=== PATIENT | female | born 1930 | race Caucasian/White ===

== ENCOUNTER 2018-04-18 21:16 | Observation (INO) | payer OTHER, MEDICARE ==
--- NOTE | 2018-04-18 21:20 | PDOC ---
History of Present Illness - General History Source: Patient, EMS Exam Limitations: No Limitations - History of Present Illness Initial Comments: 04/18/18 22:29 The patient is a 88 year old female with a significant PMH of dementia and seizures who presents to the emergency department via EMS from [facility] for evaluation of left sided facial droop. The patient was seen in the ED 1 week ago for a fall. As per EMS, the patient was sent to the ED today for a noticed left sided facial droop since about 5 pm. The patient denies any other symptoms. She denies any fever, chills, nausea, vomit, diarrhea, constipation or urinary symptoms. She denies any chest pain, shortness of breath, headache and dizziness. The patient denies any other complaints. PCP: Dr. Padilla <Kriss Bose - Last Filed: 04/18/18 22:29> - General History Source: EMS <Maynor Go - Last Filed: 04/22/18 19:23> - General Stated Complaint: FACIAL DROOPING Time Seen by Provider: 04/18/18 21:20 Past History <Kriss Bose - Last Filed: 04/18/18 22:29> - Past Medical History Cardiac Disorders: Yes (ashd, [place] in past) COPD: Yes Dementia: Yes Diabetes: Yes GI Disorders: Yes (ulcer) Psychiatric Problems: Yes (depression, panic disorder) - Suicide/Smoking/Psychosocial Hx Smoking History: Unknown if ever smoked <Maynor Go - Last Filed: 04/22/18 19:23> - Past Medical History Allergies/Adverse Reactions: Allergies Allergy/AdvReac Type Severity Reaction Status Date / Time shellfish derived Allergy Verified 04/18/18 21:51 Home Medications: Ambulatory Orders Acetaminophen [Tylenol] 650 mg PO QID PRN 04/10/18 Aspirin 81 mg PO DAILY 04/10/18 Clonazepam 0.5 mg PO BID 04/10/18 Docusate Sodium [Colace] 100 mg PO TID 04/10/18 Escitalopram Oxalate [Lexapro -] 5 mg PO DAILY 04/10/18 Metoprolol Tartrate [Lopressor -] 50 mg PO BID 04/10/18 Mirtazapine [Remeron -] 30 mg PO HS 04/10/18 Ranitidine [Zantac -] 150 mg PO HS 04/10/18 metFORMIN HCL [Metformin HCl] 850 mg PO BID 04/10/18 Dextran 70/Hypromellose [Artificial Tears Eye Drops] 2 drop OP TID #7 drops 07/28 predniSONE [Deltasone -] 40 mg PO DAILY #4 tablet 04/20/18 Review of Systems - Review of Systems Able to Perform ROS?: Yes Comments:: 04/18/18 22:30 CONSTITUTIONAL: (+)left sided facial droop Absent: fever, chills, diaphoresis, generalized weakness, malaise, loss of appetite HEENT: Absent: rhinorrhea, nasal congestion, throat pain, throat swelling, difficulty swallowing, mouth swelling, ear pain, eye pain, visual Changes CARDIOVASCULAR: Absent: chest pain, syncope, palpitations, irregular heart rate, lightheadedness , peripheral edema RESPIRATORY: Absent: cough, shortness of breath, dyspnea with exertion, orthopnea, wheezing, stridor, hemoptysis GASTROINTESTINAL: Absent: abdominal pain, abdominal distension, nausea, vomiting, diarrhea, constipation, melena, hematochezia GENITOURINARY: Absent: dysuria, frequency, urgency, hesitancy, hematuria, flank pain, genital pain MUSCULOSKELETAL: Absent: myalgia, arthralgia, joint swelling SKIN: Absent: rash, itching, pallor HEMATOLOGIC/IMMUNOLOGIC: Absent: easy bleeding, easy bruising, lymphadenopathy, frequent infections ENDOCRINE: Absent: unexplained weight gain, unexplained weight loss, heat intolerance, cold intolerance NEUROLOGIC: Absent: headache, focal weakness or paresthesias, dizziness, unsteady gait, seizure, mental status changes, bladder or bowel incontinence PSYCHIATRIC: Absent: anxiety, depression, suicidal or homicidal ideation, hallucinations. <Kriss Bose - Last Filed: 04/18/18 22:29> *Physical Exam - Vital Signs Last Vital Signs Temp Pulse Resp BP Pulse Ox 97.6 F 63 20 164/65 97 04/18/18 21:20 04/18/18 21:20 04/18/18 21:20 04/18/18 21:20 04/18/18 21:20 - Physical Exam Comments: 04/18/18 22:30 GENERAL: Well developed, well nourished. Awake and alert. No acute distress. HEENT:(+)resolving edema and erythema of face over infraction orbital of left eye with left facial droop. Normocephalic, atraumatic. PERRLA, EOMI. No conjunctival pallor. Sclera are non- icteric. Moist mucous membranes. Oropharynx is clear. NECK: Supple. Full ROM. No JVD. Carotid pulses 2+ and symmetric, without bruits. No thyromegaly. No lymphadenopathy. CARDIOVASCULAR: Regular rate and rhythm. No murmurs, rubs, or gallops. Distal pulses are 2+ and symmetric. PULMONARY: No evidence of respiratory distress. Lungs clear to auscultation bilaterally. No wheezing, rales or rhonchi. ABDOMINAL: Soft. Non-tender. Non-distended. No rebound or guarding. No organomegaly. Normoactive bowel sounds. MUSCULOSKELETAL Normal range of motion at all joints. No bony deformities or tenderness. No CVA tenderness. EXTREMITIES: No cyanosis. No clubbing. No edema. No calf tenderness. SKIN: Warm and dry. Normal capillary refill. No rashes. No jaundice. NEUROLOGICAL: Alert, awake, appropriate. Cranial nerves 2-12 intact. No deficits to light touch and temperature in face, upper extremities and lower extremities. No motor deficits in the in face, upper extremities and lower extremities. Normoreflexic in the upper and lower extremities. Normal speech. Toes are down- going bilaterally. PSYCHIATRIC: Cooperative. Good eye contact. Appropriate mood and affect. <Kriss Bose - Last Filed: 04/18/18 22:29> ED Treatment Course - LABORATORY CBC & Chemistry Diagram: 04/19/18 09:50 04/19/18 09:50 <Maynor Go - Last Filed: 04/22/18 19:23> Medical Decision Making - Medical Decision Making 04/22/18 19:23 Dr. Go: The scribe's documentation has been prepared under my direction and personally reviewed by me in its entirery. I confirm that the note above accurately reflects all work, treatment, procedures, and medical decision making performed by me. <Maynor Go - Last Filed: 04/22/18 19:23> *DC/Admit/Observation/Transfer - Attestations Scribe Attestion: 04/18/18 22:30 Documentation prepared by Kriss Bose, acting as medical insurance verifier for Maynor Go DO. <Kriss Bose - Last Filed: 04/18/18 22:29> <Maynor Go - Last Filed: 04/22/18 19:23> Diagnosis at time of Disposition: Facial droop - Discharge Dispostion Disposition: [facility] Condition at time of disposition: Stable
[2018-04-18 22:44] LABS: BASO % 0.3 % (0-2.0); EOS % 5.8 % (0-4.5); HEMATOCRIT 36.5 % (32.4-45.2); HEMOGLOBIN 12.5 GM/dL (10.7-15.3); LYMPH % 45.1 % (8-40); MCH 30.7 pg (25.7-33.7); MCHC 34.3 g/dl (32.0-36.0); MEAN CELL VOLUME 89.5 fl (80-96); MEAN PLT VOLUME 6.8 fl (7.5-11.1); MONO % 8.2 % (3.8-10.2); NEUT % 40.6 % (42.8-82.8); PLATELET COUNT 283 K/MM3 (134-434); RBC 4.07 M/mm3 (3.60-5.2); WHITE BLOOD COUNT 7.1 K/mm3 (4.0-10.0)
[2018-04-18 23:00] LABS: INR 0.94 (0.83-1.09); PROTHROMBIN TIME (PATIENT) 10.6 SEC (9.7-13.0)
[2018-04-18] MEDS ORDERED: ACETAMINOPHEN 1000 MG/100 ML VIAL (NON FORMULARY) IVPB ONE (23:03)
--- NOTE | 2018-04-18 23:12 | PDOC ---
History of Present Illness <Maynor Go - Last Filed: 04/19/18 01:46> - General History Source: Patient, EMS, Family Exam Limitations: Dementia - History of Present Illness Initial Comments: 04/18/18 23:29 Ms. 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 Her daughter visited the facility and noticed the patient had a left lower facial drooping that was noticed when she arrived to the facility at 5pm. In addition, she stated she noticed left eye drooping as well. She was recently seen here 8 days ago s/p mechanical fall that was negative for intracranial bleed. Per the son of the patient, he "may have noticed" the facial drooping yesterday. She is able to ambulate well and denies FND. Denies the following: fever, weakness, chest pain, SOB, abdominal pain, dysuria, hematuria, diarrhea, nausea, and vomiting. Endorses having frontal headaches over the past week that have been progressively worse. Pmhx: pre-diabetes, HTN, dementia, and IA Shx: None Medications: unknown to patient and daughter. states she takes anti-coagulants. Admits to aspirin 81 mg daily. Allergies: NKDA Social: Denies smoking, alcohol use, and drug use. 04/18/18 23:35 <Jonas Robledo - Last Filed: 04/19/18 06:52> - General Chief Complaint: Facial Droop Stated Complaint: FACIAL DROOPING Time Seen by Provider: 04/18/18 21:20 NIH Stroke Scale - Last Known Well Date/Time & Onset Date Last Known Well: 04/18/18 Time Last Known Well: 17:00 - Initial Evaluation Level of consciousness: Alert Ask patient the month and their age: Answers both correctly Ask patient to open & close eyes; make fist and let go: Obeys both correctly Best gaze (horizontal eye movement): Normal Visual field testing: No visual field loss Facial paresis (Show teeth/raise eyebrows/close eyes tight): Complete paralysis of one or both sides (Upper and lower face) Motor Function: Left Arm: Normal Motor Function: Right Arm: Normal (extends arm 90 (or 45) degrees for 10 seconds without drift Motor Function: Left Leg: Drift Motor Function: Right Leg: Normal (extends leg 30 degrees for 5 seconds without drift) Limb Ataxia: No ataxia Sensory(Use pinprick test arms,legs,trunk,face/side to side): Normal Best language (Describe picture, name items, read sentences): No Aphasia Dysarthria (read several words): Normal articulation Extinction and Inattention: No abnormality - Total Score NIH Stroke Scale Score: 4 <Jonas Robledo - Last Filed: 04/19/18 06:52> tPA Exclusion checklist 3-4.5h - Time Elapsed Date last known well: 04/18/18 Time last known well: 17:00 Elaspsed time: Day(s) and 13 Hour(s) and 51 Minutes - Thrombolytic Therapy Candidate Is patient eligible for thrombolytic therapy: No - Exclusion Criteria 3-4.5 hr SBP greater than 185 or DBP greater than 110mmHg despite tx: No Recent IC/spinal surgery,head trauma or stroke<3mos.: Yes Hx IC hemorrhage, IC neoplasm, AV malformation or aneurysm: No Active internal bleeding: No Blding diathesis(low plt ct, inc PTT,INR>1.7 or use of NOAC): No Symptoms suggest subarachnoid hemorrhage: No CT demonstrates multilobar infarct(>1/3 cerebral hemiphere): No Arterial puncture at noncompressible site in previous 7 days: No Blood glucose concentration less than 50mg/dL (2.7mmol/L): No - Relative Exclusion Criteria 3-4.5 hr Life expectancy <1 yr or severe co-morbid illness: No : No Patient/family refused: No Rapid improvement: No Stroke severity too mild: Yes Recent acute IA (w/in previous 3 months): No Seizure at onset with postictal residual neuro impairments: No Major surgery or serious trauma w/in previous 14 days: No Recent GI or hemorrhage (w/in previous 21 days): No - Add'l Relative Exclusion 3-4.5 hr Age > 80: Yes Taking an oral anticoagulant regardless of INR: Yes NIHSS >25: No - Ineligibility reason(s) Reasons No tPA given: Outside of window - delayed arrival (She came in from [facility]. EMS did not arrive until approximately 9:30 pm. Symptoms were too mild. Recent head trauma last week and is on anti coagulants. ) <Jonas Robledo - Last Filed: 04/19/18 06:52> Past History <Maynor Go - Last Filed: 04/19/18 01:46> - Past Medical History Cardiac Disorders: Yes (ashd, [place] in past) COPD: Yes Dementia: Yes Diabetes: Yes GI Disorders: Yes (ulcer) Psychiatric Problems: Yes (depression, panic disorder) - Suicide/Smoking/Psychosocial Hx Smoking History: Unknown if ever smoked Have you smoked in the past 12 months: No Information on smoking cessation initiated: No Hx Alcohol Use: No Drug/Substance Use Hx: No <Jonas Robledo - Last Filed: 04/19/18 06:52> - Past Medical History Allergies/Adverse Reactions: Allergies Allergy/AdvReac Type Severity Reaction Status Date / Time shellfish derived Allergy Verified 04/18/18 21:51 Home Medications: Ambulatory Orders Acetaminophen [Tylenol] 650 mg PO QID PRN 04/10/18 Aspirin 81 mg PO DAILY 04/10/18 Clonazepam 0.5 mg PO BID 04/10/18 Docusate Sodium [Colace] 100 mg PO TID 04/10/18 Escitalopram Oxalate [Lexapro -] 5 mg PO DAILY 04/10/18 Furosemide [Lasix -] 20 mg PO DAILY 04/10/18 Metoprolol Tartrate [Lopressor -] 50 mg PO BID 04/10/18 Mirtazapine [Remeron -] 30 mg PO HS 04/10/18 Ranitidine [Zantac -] 150 mg PO HS 04/10/18 metFORMIN HCL [Metformin HCl] 850 mg PO BID 04/10/18 Review of Systems - Review of Systems Able to Perform ROS?: Yes (limited due to dementia) Constitutional: No: Chills, Diaphoresis, Fever HEENTM: No: Recent change in vision Respiratory: No: Cough, Shortness of Breath Cardiac (ROS): No: Chest Pain ABD/GI: No: Constipated, Diarrhea, Nausea, Rectal Bleeding, Vomiting, Tarry Stools : No: Burning, Dysuria, Hematuria Musculoskeletal: No: Back Pain Integumentary: No: Rash Neurological: Yes: Headache Psychiatric: No: Stressors Endocrine: No: Unexplained Weight Loss Hematologic/Lymphatic: No: Anemia <VenkatJonas - Last Filed: 04/19/18 06:52> *Physical Exam - Vital Signs Last Vital Signs Temp Pulse Resp BP Pulse Ox 97.6 F 63 20 164/65 97 04/18/18 21:20 04/18/18 21:20 04/18/18 21:20 04/18/18 21:20 04/18/18 21:20 <DorisMaria Dolores guerreroan - Last Filed: 04/19/18 01:46> - Vital Signs Last Vital Signs Temp Pulse Resp BP Pulse Ox 97.6 F 63 20 164/65 97 04/18/18 21:20 04/18/18 21:20 04/18/18 21:20 04/18/18 21:20 04/18/18 21:20 - Physical Exam General Appearance: Yes: Nourished, Appropriately Dressed HEENT: positive: EOMI, [place], Normal Voice, Other (ecchymosis from previous fall on left maxilla. two small hematomas s/p mechanical fall 8 days ago on right frontal anterior forehead and right anterior head). negative: Symmetrical ( facial droop left side lower lips. inability to lift left eyebrows. ) Neck: negative: Lymphadenopathy (R), Lymphadenopathy (L) Respiratory/Chest: positive: Lungs Clear, Normal Breath Sounds Cardiovascular: positive: Regular Rhythm, Regular Rate, S1, S2, Systolic Murmur (grade 1) Vascular Pulses: Dorsalis-Pedis (R): 3+, Doralis-Pedis (L): 3+ Gastrointestinal/Abdominal: positive: Normal Bowel Sounds. negative: Tender Lymphatic: negative: Adenopathy Musculoskeletal: positive: Normal Inspection, CVA Tenderness Extremity: positive: Normal Capillary Refill, Normal Inspection Integumentary: positive: Normal Color, Dry, Warm Neurologic: positive: employment attorney II-XII NML intact, Fully Oriented, Alert, Normal Mood/ Affect, Normal Response, Motor Strength 5/5, Facial Droop (left side), Sensory Deficit (negative deficits), Finger to Nose (negative deficits). negative: EOM Palsy, Numbness <Jonas Robledo - Last Filed: 04/19/18 06:52> Heart Score/ECG Review - ECG Intrepretation Comment:: 04/18/18 23:58 normal sinus rhythm with a hx of possible inferior posterior infarct. no active ST depressions/elevations. No irregular rhythm. vent rate 73, NM 192, and QRS is 94 QTc is 469. <Jonas Robledo - Last Filed: 04/19/18 06:52> ED Treatment Course - LABORATORY CBC & Chemistry Diagram: 04/18/18 22:33 04/19/18 00:10 - ADDITIONAL ORDERS Additional order review: Laboratory Results 04/19/18 04/18/18 04/18/18 00:10 23:00 22:33 PT with INR INR Sodium 142 Potassium 4.1 Chloride 104 Carbon Dioxide 29 Anion Gap 9 BUN 24 H Creatinine 0.6 Creat Clearance w eGFR > 60 Random Glucose 89 Calcium 9.2 Total Bilirubin 0.3 AST 27 ALT 24 Alkaline Phosphatase 142 H Creatine Kinase Troponin I Total Protein 7.2 Albumin 3.6 Urine Color Ltyellow Urine Appearance Clear Urine pH 6.0 Ur Specific Nye 1.010 Urine Protein Negative Urine Glucose (UA) Negative Urine Ketones Negative Urine Blood Negative Urine Nitrite Negative Urine Bilirubin Negative Urine Urobilinogen Negative Ur Leukocyte Esterase 3+ H Urine WBC (Auto) 19 Urine RBC (Auto) <1 Ur Epithelial Cells Rare Anti-A Titer Cancelled Blood Type Cancelled Antibody Screen Cancelled 04/18/18 04/18/18 22:33 22:33 PT with INR 10.60 INR 0.94 Sodium Cancelled Potassium Cancelled Chloride Cancelled Carbon Dioxide Cancelled Anion Gap Cancelled BUN Cancelled Creatinine Cancelled Creat Clearance w eGFR Cancelled Random Glucose Cancelled Calcium Cancelled Total Bilirubin Cancelled AST Cancelled ALT Cancelled Alkaline Phosphatase Cancelled Creatine Kinase Cancelled Troponin I Cancelled Total Protein Cancelled Albumin Cancelled Urine Color Urine Appearance Urine pH Ur Specific Nye Urine Protein Urine Glucose (UA) Urine Ketones Urine Blood Urine Nitrite Urine Bilirubin Urine Urobilinogen Ur Leukocyte Esterase Urine WBC (Auto) Urine RBC (Auto) Ur Epithelial Cells Anti-A Titer Blood Type Antibody Screen 04/18/18 22:33 RBC 4.07 MCV 89.5 MCHC 34.3 RDW 14.0 MPV 6.8 L Neutrophils % 40.6 L Lymphocytes % 45.1 H Monocytes % 8.2 Eosinophils % 5.8 H Basophils % 0.3 - RADIOLOGY Radiology Studies Ordered: Category Date Time Status HEAD CT WITHOUT CONTRAST [CT] Stat CT Scan 04/18/18 21:21 Completed - Medications Given in the ED: ED Medications Discontinued Medications Generic Name Dose Route Start Last Admin Trade Name Freq PRN Reason Stop Dose Admin Acetaminophen 1,000 mg 04/18/18 23:03 04/18/18 23:27 Ofirmev Injection - IVPB 04/18/18 23:04 1,000 mg ONCE ONE Administration Acetaminophen 975 mg 04/19/18 00:23 04/19/18 00:52 Tylenol - PO 04/19/18 00:24 975 mg ONCE ONE Administration <Maynor Go - Last Filed: 04/19/18 01:46> - LABORATORY CBC & Chemistry Diagram: 04/18/18 22:33 04/19/18 00:10 - ADDITIONAL ORDERS Additional order review: Laboratory Results 04/18/18 04/18/18 22:33 22:33 Sodium Cancelled Potassium Cancelled Chloride Cancelled Carbon Dioxide Cancelled Anion Gap Cancelled BUN Cancelled Creatinine Cancelled Creat Clearance w eGFR Cancelled Random Glucose Cancelled Calcium Cancelled Total Bilirubin Cancelled AST Cancelled ALT Cancelled Alkaline Phosphatase Cancelled Creatine Kinase Cancelled Troponin I Cancelled Total Protein Cancelled Albumin Cancelled Anti-A Titer Cancelled Blood Type Cancelled Antibody Screen Cancelled 04/18/18 22:33 RBC 4.07 MCV 89.5 MCHC 34.3 RDW 14.0 MPV 6.8 L Neutrophils % 40.6 L Lymphocytes % 45.1 H Monocytes % 8.2 Eosinophils % 5.8 H Basophils % 0.3 - RADIOLOGY Radiology Studies Ordered: Category Date Time Status CHEST X-RAY PORTABLE* [RAD] Stat Radiology 04/18/18 22:17 Ordered <Jonas Robledo - Last Filed: 04/19/18 06:52> Medical Decision Making - Medical Decision Making 04/18/18 23:59 Ms. Pimentel is a 88 yo F with a hx of IA, pre-diabetic, HTN, and recent fall presenting with facial drooping. based on PE and hx, possible CVA vs bells palsy. Initial vitals: Initial Vital Signs Temp Pulse Resp BP Pulse Ox 97.6 F 63 20 164/65 97 04/18/18 21:20 04/18/18 21:20 04/18/18 21:20 04/18/18 21:20 04/18/18 21:20 Work up: Laboratory Results - last 24 hr 04/18/18 04/18/18 04/18/18 22:33 22:33 22:33 WBC 7.1 RBC 4.07 Hgb 12.5 Hct 36.5 MCV 89.5 MCH 30.7 MCHC 34.3 RDW 14.0 Plt Count 283 MPV 6.8 L Absolute Neuts (auto) 2.9 Neutrophils % 40.6 L Lymphocytes % 45.1 H Monocytes % 8.2 Eosinophils % 5.8 H Basophils % 0.3 Nucleated RBC % 0 PT with INR 10.60 INR 0.94 Sodium Cancelled Potassium Cancelled Chloride Cancelled Carbon Dioxide Cancelled Anion Gap Cancelled BUN Cancelled Creatinine Cancelled Creat Clearance w eGFR Cancelled Random Glucose Cancelled Calcium Cancelled Total Bilirubin Cancelled AST Cancelled ALT Cancelled Alkaline Phosphatase Cancelled Creatine Kinase Cancelled Troponin I Cancelled Total Protein Cancelled Albumin Cancelled Urine Color Urine Appearance Urine pH Ur Specific Nye Urine Protein Urine Glucose (UA) Urine Ketones Urine Blood Urine Nitrite Urine Bilirubin Urine Urobilinogen Ur Leukocyte Esterase Urine WBC (Auto) Urine RBC (Auto) Ur Epithelial Cells Anti-A Titer Blood Type Antibody Screen 04/18/18 04/18/18 22:33 23:00 WBC RBC Hgb Hct MCV MCH MCHC RDW Plt Count MPV Absolute Neuts (auto) Neutrophils % Lymphocytes % Monocytes % Eosinophils % Basophils % Nucleated RBC % PT with INR INR Sodium Potassium Chloride Carbon Dioxide Anion Gap BUN Creatinine Creat Clearance w eGFR Random Glucose Calcium Total Bilirubin AST ALT Alkaline Phosphatase Creatine Kinase Troponin I Total Protein Albumin Urine Color Ltyellow Urine Appearance Clear Urine pH 6.0 Ur Specific Nye 1.010 Urine Protein Negative Urine Glucose (UA) Negative Urine Ketones Negative Urine Blood Negative Urine Nitrite Negative Urine Bilirubin Negative Urine Urobilinogen Negative Ur Leukocyte Esterase 3+ H Urine WBC (Auto) 19 Urine RBC (Auto) <1 Ur Epithelial Cells Rare Anti-A Titer Cancelled Blood Type Cancelled Antibody Screen Cancelled Lab reported that CMP/trops/TS hemolyzed. Continued hemolyzation occurred. Redraw occurring at 12:01 am 04/19/2018. Care transferred to Dr. East 04/19/18 00:01 04/19/18 06:51 <Jonas Robledo - Last Filed: 04/19/18 06:52> *DC/Admit/Observation/Transfer - Discharge Dispostion Decision to Admit order: Yes Decision to Admit order Date/Time: Decision to Admit Order Category Date Time Status Decision to Admit to Hospital Routine Admission 08/10/18 01:45 Ordered <Maynor Go - Last Filed: 04/19/18 01:46> <Jonas Robledo - Last Filed: 04/19/18 06:52> Diagnosis at time of Disposition: Facial droop - Discharge Dispostion Condition at time of disposition: Stable
[2018-04-18] MEDS ORDERED: ACETAMINOPHEN INJECTION 100 ML IVPB ONE (23:19)
[2018-04-18 23:20] LABS: URINE APPEARANCE CLEAR; URINE BILIRUBIN NEGATIVE (<2.0 mg/dL); URINE COLOR LTYELLOW; URINE GLUCOSE (UA) NEGATIVE (NEGATIVE); URINE KETONE NEGATIVE (NEGATIVE); URINE NITRITE NEGATIVE (NEGATIVE); URINE PROTEIN NEGATIVE (NEGATIVE); URINE UROBILINOGEN NEGATIVE mg/dL (0.2-1.0)
[2018-04-18 23:33] LABS: URINE LEUK ESTERASE 3+ (NEGATIVE)
[2018-04-18 23:43] LABS: EPI CELLS RARE /HPF (FEW)
[2018-04-19] MEDS ORDERED: ACETAMINOPHEN 325 MG TABLET (FP) PO ONE (00:23)
[2018-04-19] MEDS ORDERED: ACETAMINOPHEN 325 MG TABLET (FP) ONE (00:32)
[2018-04-19 01:08] LABS: ALBUMIN 3.6 g/dl (3.4-5.0); ANION GAP 9 (8-16); BILIRUBIN,TOTAL 0.3 mg/dL (0.2-1.0); BLOOD UREA NITROGEN 24 mg/dL (7-18); CALCIUM 9.2 mg/dL (8.5-10.1); CHLORIDE 104 mmol/L (98-107); CO2 29 mmol/L (21-32); CREATININE 0.6 mg/dL (0.55-1.02); GLUCOSE,RANDOM 89 mg/dL (74-106); SGPT/ALT 24 U/L (12-78); SODIUM 142 mmol/L (136-145)
[2018-04-19 01:09] LABS: ALK PHOS 142 U/L (45-117); TOT PROT 7.2 g/dl (6.4-8.2)
--- NOTE | 2018-04-19 01:10 | HP ---
CHIEF COMPLAINT: left facial droop PCP: HISTORY OF PRESENT ILLNESS: Patient is an 88 year old female with past medical history of Dementia, VT (s/p CABG in 2017), pre-diabetes, and Hypertension, was brought in because of left facial drooping. Her daughter reported patient had left lower facial drooping and left eye drooping when she was visiting patient at the facility a few hours ago. Her son noted he may have noticed facial drooping yesterday. Patient is a poor historian. When asked if she knows why she's here, she reported it was because she fell (which happened 1 week ago) and she never noted the facial drooping. Otherwise, patient denies headache, dizziness, chest pain, SOB, palpitations, numbness or tingling. ER course was notable for: (1)NIH stroke scale: 4 (2)Head CT: no evidence of acute intracranial pathology Recent Travel:denies recent travel PAST MEDICAL HISTORY: Dementia VT pre-diabetic HTN PAST SURGICAL HISTORY: s/p CABG (2017) Social History: Smoking:nonsmoker Alcohol:no EtOH use Drugs: denies illicit drug use Family History: Allergies shellfish derived Allergy (Verified 04/18/18 21:51) HOME MEDICATIONS: Home Medications Medication Instructions Recorded Acetaminophen [Tylenol] 650 mg PO QID PRN 04/10/18 Aspirin 81 mg PO DAILY 04/10/18 Clonazepam 0.5 mg PO BID 04/10/18 Docusate Sodium [Colace] 100 mg PO TID 04/10/18 Escitalopram Oxalate [Lexapro -] 5 mg PO DAILY 04/10/18 Furosemide [Lasix -] 20 mg PO DAILY 04/10/18 Metoprolol Tartrate [Lopressor -] 50 mg PO BID 04/10/18 Mirtazapine [Remeron -] 30 mg PO HS 04/10/18 Ranitidine [Zantac -] 150 mg PO HS 04/10/18 metFORMIN HCL [Metformin HCl] 850 mg PO BID 04/10/18 REVIEW OF SYSTEMS CONSTITUTIONAL: Absent: fever, chills, diaphoresis, generalized weakness, malaise, loss of appetite, weight change HEENT: Absent: rhinorrhea, nasal congestion, throat pain, throat swelling, difficulty swallowing, mouth swelling, ear pain, eye pain, visual changes CARDIOVASCULAR: Absent: chest pain, syncope, palpitations, irregular heart rate, lightheadedness , peripheral edema RESPIRATORY: Absent: cough, shortness of breath, dyspnea with exertion, orthopnea, wheezing, stridor, hemoptysis GASTROINTESTINAL: Absent: abdominal pain, abdominal distension, nausea, vomiting, diarrhea, constipation, melena, hematochezia GENITOURINARY: Absent: dysuria, frequency, urgency, hesitancy, hematuria, flank pain, genital pain MUSCULOSKELETAL: Absent: myalgia, arthralgia, joint swelling, back pain, neck pain SKIN: Absent: rash, itching, pallor HEMATOLOGIC/IMMUNOLOGIC: Absent: easy bleeding, easy bruising, lymphadenopathy, frequent infections ENDOCRINE: Absent: unexplained weight gain, unexplained weight loss, heat intolerance, cold intolerance NEUROLOGIC: Absent: headache, focal weakness or paresthesias, dizziness, unsteady gait, seizure, mental status changes, bladder or bowel incontinence PSYCHIATRIC: Absent: anxiety, depression, suicidal or homicidal ideation, hallucinations. PHYSICAL EXAMINATION Vital Signs - 24 hr 04/18/18 21:20 Temperature 97.6 F Pulse Rate 63 Respiratory 20 Rate Blood Pressure 164/65 O2 Sat by Pulse 97 Oximetry (%) GENERAL: Awake, alert, and fully oriented, in no acute distress. HEAD: Normal with no signs of trauma. EYES: PERRLA, EOMI, sclera anicteric, conjunctiva clear. EARS, NOSE, THROAT: Ears normal, nares patent, oropharynx clear without exudates. Moist mucous membranes. NECK: Normal range of motion, supple without lymphadenopathy, JVD, or masses. LUNGS: Breath sounds equal, clear to auscultation bilaterally. HEART: Regular rate and rhythm, normal S1 and S2 without murmur, rub or gallop. ABDOMEN: Soft, nontender, not distended, normoactive bowel sounds. MUSCULOSKELETAL: Normal range of motion at all joints. No bony deformities or tenderness. No CVA tenderness. UPPER EXTREMITIES: 2+ pulses, warm, well-perfused. No cyanosis. No clubbing. No peripheral edema. LOWER EXTREMITIES: 2+ pulses, warm, well-perfused. No calf tenderness. No peripheral edema. NEUROLOGICAL: Cranial nerves II-XII intact. +Facial droop, left, motor 5/5, sensation intact. Normal speech. Normal gait. PSYCHIATRIC: Cooperative. Good eye contact. Appropriate mood and affect. SKIN: Warm, dry, normal turgor, no rashes or lesions. Laboratory Results - last 24 hr 04/18/18 04/18/18 04/18/18 22:33 22:33 22:33 WBC 7.1 RBC 4.07 Hgb 12.5 Hct 36.5 MCV 89.5 MCH 30.7 MCHC 34.3 RDW 14.0 Plt Count 283 MPV 6.8 L Absolute Neuts (auto) 2.9 Neutrophils % 40.6 L Lymphocytes % 45.1 H Monocytes % 8.2 Eosinophils % 5.8 H Basophils % 0.3 Nucleated RBC % 0 PT with INR 10.60 INR 0.94 Sodium Cancelled Potassium Cancelled Chloride Cancelled Carbon Dioxide Cancelled Anion Gap Cancelled BUN Cancelled Creatinine Cancelled Creat Clearance w eGFR Cancelled Random Glucose Cancelled Calcium Cancelled Total Bilirubin Cancelled AST Cancelled ALT Cancelled Alkaline Phosphatase Cancelled Creatine Kinase Cancelled Troponin I Cancelled Total Protein Cancelled Albumin Cancelled Urine Color Urine Appearance Urine pH Ur Specific [place] Urine Protein Urine Glucose (UA) Urine Ketones Urine Blood Urine Nitrite Urine Bilirubin Urine Urobilinogen Ur Leukocyte Esterase Urine WBC (Auto) Urine RBC (Auto) Ur Epithelial Cells Anti-A Titer Blood Type Antibody Screen 04/18/18 04/18/18 22:33 23:00 WBC RBC Hgb Hct MCV MCH MCHC RDW Plt Count MPV Absolute Neuts (auto) Neutrophils % Lymphocytes % Monocytes % Eosinophils % Basophils % Nucleated RBC % PT with INR INR Sodium Potassium Chloride Carbon Dioxide Anion Gap BUN Creatinine Creat Clearance w eGFR Random Glucose Calcium Total Bilirubin AST ALT Alkaline Phosphatase Creatine Kinase Troponin I Total Protein Albumin Urine Color Ltyellow Urine Appearance Clear Urine pH 6.0 Ur Specific [place] 1.010 Urine Protein Negative Urine Glucose (UA) Negative Urine Ketones Negative Urine Blood Negative Urine Nitrite Negative Urine Bilirubin Negative Urine Urobilinogen Negative Ur Leukocyte Esterase 3+ H Urine WBC (Auto) 19 Urine RBC (Auto) <1 Ur Epithelial Cells Rare Anti-A Titer Cancelled Blood Type Cancelled Antibody Screen Cancelled CBC, BMP 04/18/18 22:33 04/19/18 00:10 ASSESSMENT/PLAN: Patient is an 88 year old female with past medical history of Dementia, VT (s/p CABG in 2017), pre-diabetes, and Hypertension, was brought in because of left facial drooping. 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 -Carotid doppler b/l US -Lipid panel -Brain MRI ordered. -Lyme serology -NPO for now. -Speech and swallow evaluation appreciated. -Fall precaution -bed rest -Neuro checks q4h -Dr. Delong consult appreciated. #Hypertension:chronic -continue Lopressor 50 mg BID #pre-DM: chornic -continue Metformin 850 mg BID #FEN -IV NS (0.9%) 75 ml/hr -routine bmp monitoring -NPO for now #Prophylaxis -Heparin 5000 units sq tid #Disposition -admit to med-surg -full code Visit type - Emergency Visit Emergency Visit: Yes ED Registration Date: 04/19/18 Care time: The patient presented to the Emergency Department on the above date and was hospitalized for further evaluation of their emergent condition. - New Patient This patient is new to me today: Yes Date on this admission: 04/19/18 - Critical Care Critical Care patient: No Hospitalist Screening - Colonoscopy Questionnaire Colonoscopy Questionnaire: Colonoscopy Questionnaire - Patient: 50 - 75 years old and never had a screening colonoscopy: Unknown History of colon or rectal polyps, or CA: Unknown History of IBD, Crohn's disease or UC: Unknown History of abdominal radiation therapy as a child: Unknown - Relative: 1 with colon or rectal CA, or polyps at age 60 or younger: Unknown Colon or rectal CA diagnosed at age 45 or younger: Unknown Multiple relatives with colon or rectal CA: Unknown - Outcome: Screening Result: Negative Screen
[2018-04-19 01:12] LABS: POTASSIUM 4.1 mmol/L (3.5-5.1); SGOT/AST 27 U/L (15-37)
[2018-04-19] MEDS ORDERED: ACETAMINOPHEN 325 MG TABLET (FP) PO PRN (02:07)
[2018-04-19] MEDS ORDERED: HEPARIN NA (PORCINE) 5,000 UNITS/ML 1ML VIAL ONE (02:13)
[2018-04-19 04:27] VITALS: BMI 20.9
--- NOTE | 2018-04-19 05:19 | PN ---
Teaching Attending Note Name of Resident: Elisabeth Sifuentes ATTENDING PHYSICIAN STATEMENT I saw and evaluated the patient. Chart, data, imaging reviewed. I reviewed the resident's note and discussed the case with the resident. I agree with the resident's findings and plan as documented. SUBJECTIVE: 88 year old female with a significant PMH of dementia and seizures who presents to the emergency department via EMS from [facility] for evaluation of left sided facial droop which was noted on 04/18 at around 5pm. Patient does not have any complaints herself. OBJECTIVE: Last Vital Signs Temp Pulse Resp BP Pulse Ox 98.0 F 68 16 146/63 95 04/19/18 04:11 04/19/18 04:11 04/19/18 05:15 04/19/18 04:11 04/19/18 05:15 General- nad, nontoxic heent- eccymosis on left eye, no facial asymmetry noted on my exam. neck -no jvd skin - no rashes seen Pt noncompliant with rest of physical exam Abnormal Lab Results 04/18/18 04/18/18 04/19/18 22:33 23:00 00:10 MPV 6.8 L Neutrophils % 40.6 L Lymphocytes % 45.1 H Eosinophils % 5.8 H BUN 24 H Alkaline Phosphatase 142 H Ur Leukocyte Esterase 3+ H Head CT reviewed- negative for any acute insults ASSESSMENT AND PLAN: 88yo woman with left sided facial droop which appears to have now resolved? CT of head was negative for any insults. Low suspiscion for CVA. Should r/o Lyme dz. 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 -tele/observation -neuro evaluation -neuro check q4hrs -fall precautions -bed rest -echo -b/l carotid duplex -NPO for now -speech and swallow evaluation -physical therapy -Lyme serology -heparin sc for dvt prophylaxis -restart home meds, see resident note for details
[2018-04-19] MEDS ORDERED: PT OWN MED DRAWER 7, Y5N ONE ×4 (06:38→11:44)
[2018-04-19] MEDS: DOCUSATE SODIUM 100 MG CAPSULE (FP) PO SCH ×3 (06:49→22:56)
[2018-04-19] MEDS: SODIUM CHLORIDE 1,000 ML IV SCH (06:50)
[2018-04-19] MEDS: OFLOXACIN 0.3% OPHTHALMIC SOLUTION 5 ML BOTTLE OD SCH ×5 (06:51→23:09)
[2018-04-19] MEDS: HEPARIN NA (PORCINE) 5,000 UNITS/ML 1ML VIAL SQ SCH ×3 (06:51→22:57)
--- NOTE | 2018-04-19 08:31 | EKG ---
Test Reason : Blood Pressure : / mmHG Vent. Rate : 073 BPM Atrial Rate : 073 BPM P-R Int : 192 ms QRS Dur : 094 ms QT Int : 426 ms P-R-T Axes : 072 074 -27 degrees QTc Int : 469 ms NORMAL SINUS RHYTHM INFERIOR-POSTERIOR INFARCT , AGE UNDETERMINED ABNORMAL ECG NO PREVIOUS ECGS AVAILABLE Confirmed by LINDA SANDOVAL MD ([id number]) on 04/19/2018 8:31:36 AM Referred By: Confirmed By:LINDA SANDOVAL MD
[2018-04-19] MEDS ORDERED: PNEUMOC 13-VAL CONJ-DIP CRM/PF 0.5 ML DISP.SYRIN IM ONE (09:00)
[2018-04-19 10:11] LABS: HEMATOCRIT 36.4 % (32.4-45.2); HEMOGLOBIN 12.4 GM/dL (10.7-15.3); MCH 30.3 pg (25.7-33.7); MCHC 34.1 g/dl (32.0-36.0); MEAN PLT VOLUME 6.8 fl (7.5-11.1); PLATELET COUNT 268 K/MM3 (134-434); RBC 4.09 M/mm3 (3.60-5.2); RDW 13.9 % (11.6-15.6); WHITE BLOOD COUNT 6.1 K/mm3 (4.0-10.0)
--- NOTE | 2018-04-19 10:19 | ECHO ---
Name: RENAE UGALDE Exam:Adult Echocardiogram Study Date: 04/19/2018 09:01 AM Age: 88 yrs Reason For Study: Stroke Height: 65 in Weight: 126 lb BSA: 1.6 m2 MMode/2D Measurements & Calculations IVSd: 1.9 cm Ao root diam: 3.0 cm LVIDd: 3.4 cm LA dimension: 3.2 cm LVIDs: 2.7 cm LVPWd: 1.4 cm EDV(Teich): 47.7 ml ESV(Teich): 25.9 ml Doppler Measurements & Calculations MV V2 max: 131.2 cm/sec MV E max angel: 70.3 cm/sec MV max P.9 mmHg MV A max angel: 113.0 cm/sec MV V2 mean: 73.7 cm/sec MV E/A: 0.62 MV mean P.4 mmHg MV dec time: 0.26 sec MV V2 VTI: 28.0 cm TR max angel: 244.8 cm/sec Med Peak E' Angel: 4.4 cm/sec TR max P.0 mmHg Med E/e': 16.2 Lat Peak E' Angel: 8.6 cm/sec Lat E/e': 8.2 PI Vmax: 100.4 cm/sec Left Ventricle There is mild concentric left ventricular hypertrophy. The left ventricular ejection fraction is sidney sly normal. The transmitral spectral Doppler flow pattern is suggestive of impaired LV relaxation. Septal motion is consistent with conduction abnormality. Right Ventricle The right ventricle is grossly normal size. The right ventricular systolic function is grossly normal . Atria Normal left and right atrial size and function. Mitral Valve There is severe mitral annular calcification. There is no mitral valve stenosis. There is mild mitral regurgitation. Tricuspid Valve The tricuspid valve is normal in structure and function. There is mild tricuspid regurgitation. Aortic Valve There is mild aortic sclerosis.;. No hemodynamically significant valvular aortic stenosis. Pulmonic Valve The pulmonic valve is not well seen, but is grossly normal. There is no pulmonic valvular stenosis. T here is no pulmonic valvular regurgitation. Great Vessels The aortic root is normal size. Pericardium/Pleura There is no pericardial effusion. Interpretation Summary Septal motion is consistent with conduction abnormality. The left ventricular ejection fraction is grossly normal. The transmitral spectral Doppler flow pattern is suggestive of impaired LV relaxation. There is severe mitral annular calcification. There is mild mitral regurgitation. There is mild tricuspid regurgitation. There is mild aortic sclerosis.; There is no pericardial effusion. MD Allan Lawrence 04/19/2018 10:19 AM
[2018-04-19] MEDS: ESCITALOPRAM OXALATE 10 MG TABLET (FP) PO SCH (10:26)
[2018-04-19] MEDS: clonazePAM 0.5 MG TABLET PO SCH ×2 (10:28→22:57)
[2018-04-19] MEDS: METOPROLOL TARTRATE 50 MG TABLET (FP) PO SCH ×2 (10:28→22:57)
[2018-04-19] MEDS: ASPIRIN 81 MG CHEWABLE TABLETS PO SCH (10:29)
[2018-04-19 10:31] LABS: ANION GAP 7 (8-16); BLOOD UREA NITROGEN 23 mg/dL (7-18); CALCIUM 9.2 mg/dL (8.5-10.1); CHLORIDE 107 mmol/L (98-107); CO2 30 mmol/L (21-32); CREATININE 0.6 mg/dL (0.55-1.02); GLUCOSE,RANDOM 92 mg/dL (74-106); MAGNESIUM 2.1 mg/dL (1.8-2.4); PHOSPHOROUS 3.4 mg/dL (2.5-4.9); POTASSIUM 3.8 mmol/L (3.5-5.1); SODIUM 144 mmol/L (136-145)
--- NOTE | 2018-04-19 10:33 | PN ---
Progress Note, Physician History of Present Illness: Patient seen and examined. Next and chart reviewed. Alert and awake. Comfortable. Denies pain. Wants to eat Ambulating in the room - Current Medication List Current Medications: Active Medications Acetaminophen (Tylenol -) 650 mg PO Q6H PRN PRN Reason: PAIN OR FEVER Aspirin (Asa -) 81 mg PO DAILY [facility] Clonazepam (Klonopin -) 0.5 mg PO BID [facility] Docusate Sodium (Colace -) 100 mg PO TID [facility] Last Admin: 04/19/18 06:49 Dose: 100 mg Escitalopram Oxalate (Lexapro -) 5 mg PO DAILY [facility] Furosemide (Lasix -) 20 mg PO DAILY [facility] Heparin Sodium (Porcine) (Heparin -) 5,000 unit SQ TID [facility] Last Admin: 04/19/18 06:51 Dose: Not Given Sodium Chloride (Normal Saline -) 1,000 mls @ 75 mls/hr IV ASDIR [facility] Last Admin: 04/19/18 06:50 Dose: Not Given Metformin HCl (Glucophage -) 850 mg PO BIDAC [facility] Last Admin: 04/19/18 06:51 Dose: Not Given Metoprolol Tartrate (Lopressor -) 50 mg PO BID [facility] Mirtazapine (Remeron -) 30 mg PO HS [facility] Ofloxacin (Ocuflox 0.3% Eye Drops -) 1 drop OD Q4HWA [facility] Last Admin: 04/19/18 06:51 Dose: Not Given Ranitidine HCl (Zantac -) 150 mg PO HS [facility] - Objective Vital Signs: Vital Signs Temperature 97.8 F 04/19/18 08:29 Pulse Rate 75 04/19/18 08:29 Respiratory Rate 20 04/19/18 08:29 Blood Pressure 155/77 04/19/18 08:29 O2 Sat by Pulse Oximetry (%) 95 04/19/18 05:15 Constitutional: Yes: No Distress, Calm, Other Eyes: Yes: Conjunctiva Clear HENT: Yes: WNL (left-sided facial weakness----ecchymosis on the cheek) Cardiovascular: Yes: Regular Rate and Rhythm Respiratory: Yes: CTA Bilaterally Gastrointestinal: Yes: Soft Edema: No Neurological: Yes: Alert Psychiatric: Yes: Alert Labs: INR, PTT INR 0.94 (0.83-1.09) 04/18/18 22:33 Problem List - Problems (1) Facial paralysis/[place] palsy Code(s): G51.0 - DOHERTY'S PALSY (2) Fall Code(s): W19.XXXA - UNSPECIFIED FALL, INITIAL ENCOUNTER Qualifiers: Encounter type: initial encounter Qualified Code(s): W19.XXXA - Unspecified fall, initial encounter Assessment/Plan 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
[2018-04-19 10:40] LABS: CHOLESTEROL 241 mg/dL (50-200)
[2018-04-19 10:41] LABS: HDL CHOLESTEROL 53 mg/dL (40-60); TRIGLYCERIDES 135 mg/dL (35-160)
--- NOTE | 2018-04-19 11:24 | CONSULT ---
Admitting History and Physical - Primary Care Physician PCP: Radha Espino - Admission History of Present Illness: Patient is an 88 year old female with past medical history of Dementia, CT (s/p CABG in 2017), pre-diabetes, and Hypertension, was brought in because of left facial drooping. Selected Entries 04/19/18 04/19/18 04/19/18 04:11 08:29 10:41 Breakfast NPO Temperature 98.0 F 97.8 F Laboratory Tests 04/19/18 09:50 WBC 6.1 Pt with h/o of intubation last year, dysphagia, with decannulation. Pt has been swallowing well, now lives at [facility], on reg soft diet and thin liquids on the [facility]/Dementia unit. History Source: Family Member Limitations to Obtaining History: Clinical Condition, Dementia - Past Medical History ...: No - Advance Directives Advance Directives: Yes: Health Care Proxy - Smoking History Smoking history: Unknown if ever smoked Have you smoked in the past 12 months: No - Alcohol/Substance Use Hx Alcohol Use: No History - Admission Reason For Visit: FACIAL DROOP - Diagnostics X-ray: Report Reviewed CT Scan: Report Reviewed Modified Barium Swallow: Report Reviewed (2017) - General Mental Status: Awake and Alert, Able to Follow Commands, Forgetful, Confused Attention: Intact Ability to Follow Directions: Good Head/Neck Control: WFL - Hearing Hearing: Functional Hearing Aide: No With Patient: No Speech Evaluation - Communication Primary Language: GERMAN Communication: Yes: Within Normal Limits Oral Expression Ability: Yes: No Impairment - Speech Production Able to Make Needs Known: Yes: WNL Intelligibility: Yes: WNL - Speech Characteristics Voice Loudness: Normal Voice Pitch: Yes: Normal Voice Phonatory-based Quality: Yes: Normal Speech Pattern: Normal Speech Clarity: < 100% Nasal Resonance: Normal Articulation: Yes: Precise Rate of Speech: Intact - Language/Auditory Comprehension Follows: Yes: 1 Stage Simple Commands - Language/Verbal Expression Able to Respond to Simple Queries: Yes: WNL Able to Communicate Wants and Needs: Yes: WNL Functional Communication Status: Yes: WNL - Swallow Evaluation/Bedside Assessment Current Nutritional Intake: Dysphagia Pureed, Thin Liquids Dentition: Yes: Missing Teeth Facial Symmetry at Rest: Facial Droop Right Facial Symmetry on Retraction: Facial Droop Right Pucker Lips: Droops Left Smile: Droops Left Lingual Movement: Symmetric Lingual Speed of Movement: Normal Lingual Movement Strgth Against Opposition: Normal Lingual Movement Characteristics: Normal Velopharyngeal Movement: Normal Laryngeal Elevation: WFL Laryngeal Movement: Able to Palpate Rate of Intake: WFL Bolus Size: WFL Labial Seal: Impaired Left Chewing: WFL Oral Prep Time: WFL A-P Transit: WFL Pocketing: None Timing of Swallow: WFL Coughing/Throat Clear: No Change in Voice: No Recommendations - Speech Evaluation, Impression/Plan Impression: Left facial droop with difficulty closing left eye. r/o Gonzalez's palsy. w/u in progress. Verbal, baseline memory deficits sec Dementia. Swallowing overtly intact. Left eye discomfort- consider lubricating eye drops/ gel/patch at night - Disposition [facility] - Dysphagia Impressions/Plan Dysphagia Impressions: Minimal Impairment *Silent aspiration: cannot be R/O at bedside Recommendations: Modified Barium Swallow (Downgrade diet, if cough/congestion fever, and mbs.) - Recommendations Diet Consistency: Regular (soft) Liquids: Thin Liquids
[2018-04-19] MEDS: FUROSEMIDE 20 MG TABLET (FP) PO SCH (11:29)
[2018-04-19] MEDS: INSULIN SLIDING SCALE (NOVOLOG) 1 VIAL SQ SCH ×3 (12:07→23:09)
[2018-04-19] MEDS ORDERED: LORazepam 2 MG/ML SDV VIAL IM ONE (15:15)
--- NOTE | 2018-04-19 18:57 | CON.NEURO ---
Consult - Past Medical History ...: No - Alcohol/Substance Use Hx Alcohol Use: No - Smoking History Smoking history: Unknown if ever smoked Have you smoked in the past 12 months: No Home Medications - Allergies Allergies/Adverse Reactions: Allergies Allergy/AdvReac Type Severity Reaction Status Date / Time shellfish derived Allergy Verified 04/18/18 21:51 - Home Medications Home Medications: Ambulatory Orders Acetaminophen [Tylenol] 650 mg PO QID PRN 04/10/18 Aspirin 81 mg PO DAILY 04/10/18 Clonazepam 0.5 mg PO BID 04/10/18 Docusate Sodium [Colace] 100 mg PO TID 04/10/18 Escitalopram Oxalate [Lexapro -] 5 mg PO DAILY 04/10/18 Furosemide [Lasix -] 20 mg PO DAILY 04/10/18 Metoprolol Tartrate [Lopressor -] 50 mg PO BID 04/10/18 Mirtazapine [Remeron -] 30 mg PO HS 04/10/18 Ranitidine [Zantac -] 150 mg PO HS 04/10/18 metFORMIN HCL [Metformin HCl] 850 mg PO BID 04/10/18 Physical Exam-Neuro Vital Signs: Vital Signs Temperature 98.1 F 04/19/18 14:57 Pulse Rate 77 04/19/18 14:57 Respiratory Rate 20 04/19/18 08:29 Blood Pressure 141/69 04/19/18 14:57 O2 Sat by Pulse Oximetry (%) 95 04/19/18 13:00 Labs: CBC, BMP 04/19/18 09:50 04/19/18 09:50 INR, PTT INR 0.94 (0.83-1.09) 04/18/18 22:33 Assessment/Plan cc Left face paralysis HPI : 88 year old female history of Dementia, CAD (S/P CABG in 2017), prediabetes, HTN. She was brought to hospital for left sided facial paralysis. She has caoritd ultrasound was done and mri is pending. Her ct head is normal. There is no aphasia, motor weakness , No seizure or LOC. Her nih score at admission was 4 PMH Dementia ME pre-diabetic HTN PAST SURGICAL HISTORY: s/p CABG (2017) Social History: Smoking:nonsmoker Alcohol:no EtOH use Drugs: denies illicit drug use FH,ROS reviewed in chart Allergies shellfish derived Allergy (Verified 04/18/18 21:51) HOME MEDICATIONS: Home Medications Medication Instructions Recorded Acetaminophen [Tylenol] 650 mg PO QID PRN 04/10/18 Aspirin 81 mg PO DAILY 04/10/18 Clonazepam 0.5 mg PO BID 04/10/18 Docusate Sodium [Colace] 100 mg PO TID 04/10/18 Escitalopram Oxalate [Lexapro -] 5 mg PO DAILY 04/10/18 Furosemide [Lasix -] 20 mg PO DAILY 04/10/18 Metoprolol Tartrate [Lopressor -] 50 mg PO BID 04/10/18 Mirtazapine [Remeron -] 30 mg PO HS 04/10/18 Ranitidine [Zantac -] 150 mg PO HS 04/10/18 metFORMIN HCL [Metformin HCl] 850 mg PO BID 04/10/18 Neurological Examiantion Alert oriented x 1, she could tell her name , she could not tell what place and what date is today speech is normal Left sided LMN type of facial palsy,eomi, pupils reactive moving all extremity 5/[address] head is normal carotid ultrasound and mri of brain is pending Assessment- Left sided bells palsy, unlikely to be stroke Plan- recommend to take prednisone 40 mg po once a day x 5 days, if ok with primary - may obtain mri of brain as it is already scheduled - continue same medication as before Thanking you so much Omar Velazquez MD
[2018-04-19] MEDS: PANTOPRAZOLE 40 MG TABLET (FP) PO SCH (19:10)
[2018-04-19] MEDS: predniSONE 20 MG TABLET (UD) PO SCH (19:10)
[2018-04-19] MEDS ORDERED: RANITIDINE HCL 150 MG TABLET (FP) PO SCH (22:00)
[2018-04-19] MEDS ORDERED: MIRTAZAPINE 30 MG TABLET (FP) PO SCH (22:00)
[2018-04-20] MEDS: SODIUM CHLORIDE 1,000 ML IV SCH (05:00)
[2018-04-20] MEDS: HEPARIN NA (PORCINE) 5,000 UNITS/ML 1ML VIAL SQ SCH ×2 (06:38→13:13)
[2018-04-20] MEDS: DOCUSATE SODIUM 100 MG CAPSULE (FP) PO SCH ×2 (06:38→13:13)
[2018-04-20] MEDS ORDERED: PT OWN MED DRAWER 7, Y5N ONE ×2 (06:42→06:58)
[2018-04-20] MEDS: INSULIN SLIDING SCALE (NOVOLOG) 1 VIAL SQ SCH ×2 (06:44→12:06)
[2018-04-20] MEDS: OFLOXACIN 0.3% OPHTHALMIC SOLUTION 5 ML BOTTLE OD SCH ×3 (06:44→13:13)
[2018-04-20 07:53] VITALS: BP 157/88; PULSE 86; TEMP 98
--- NOTE | 2018-04-20 08:57 | PN ---
Progress Note (short form) - Note Progress Note: HPI : 88 year old female history of Dementia, CAD (S/P CABG in 2017), prediabetes, HTN. She was brought to hospital for left sided facial paralysis. She has caoritd ultrasound was done and mri is pending. Her ct head is normal. There is no aphasia, motor weakness , No seizure or LOC. Her nih score at admission was 4, Neurological Examiantion Alert oriented x 1, she could tell her name , she could not tell what place and what date is today speech is normal Left sided LMN type of facial palsy,eomi, pupils reactive moving all extremity 5/[address] head is normal carotid ultrasound and mri of brain is pending Assessment- Left sided bells palsy, unlikely to be stroke Plan- continue prednisone and follow up on mri results , once mri is negative , she can be discharged from neuro point of view Thanking you so much Omar Velazquez MD
[2018-04-20] MEDS: clonazePAM 0.5 MG TABLET PO SCH (09:05)
[2018-04-20] MEDS: METOPROLOL TARTRATE 50 MG TABLET (FP) PO SCH (09:05)
[2018-04-20] MEDS: predniSONE 20 MG TABLET (UD) PO SCH (09:06)
[2018-04-20] MEDS: FUROSEMIDE 20 MG TABLET (FP) PO SCH (09:06)
[2018-04-20] MEDS: ESCITALOPRAM OXALATE 10 MG TABLET (FP) PO SCH (09:06)
[2018-04-20] MEDS: PANTOPRAZOLE 40 MG TABLET (FP) PO SCH (09:06)
[2018-04-20] MEDS: ASPIRIN 81 MG CHEWABLE TABLETS PO SCH (09:06)
--- NOTE | 2018-04-20 10:45 | DS ---
Physical Examination Vital Signs: Vital Signs Temperature 98.0 F 04/20/18 07:52 Pulse Rate 86 04/20/18 07:52 Respiratory Rate 16 04/20/18 07:52 Blood Pressure 157/88 04/20/18 07:52 O2 Sat by Pulse Oximetry (%) 97 04/20/18 08:30 Constitutional: Yes: No Distress, Calm Cardiovascular: Yes: Regular Rate and Rhythm Respiratory: Yes: CTA Bilaterally Gastrointestinal: Yes: Normal Bowel Sounds, Soft. No: Tenderness Edema: No Neurological: Yes: Alert, Facial Droop (left) Labs: CBC, BMP 04/19/18 09:50 04/19/18 09:50 Discharge Summary Reason For Visit: FACIAL DROOP Current Active Problems Facial paralysis/[place] palsy (Acute) Hospital Course: Admitted for facial droop- left She has h/o fall MRI brain - no acute ischemia Pt diagnosed to have Gonzalez's palsy Seen by Neurology-- started prednisone x5days Stable for dc to DC Carotid doppler - no stenosis Echo-- mild LV diastolic dysfunction Condition: Stable - Instructions Disposition: [facility] - Home Medications Comprehensive Discharge Medication List: Ambulatory Orders Acetaminophen [Tylenol] 650 mg PO QID PRN 04/10/18 Aspirin 81 mg PO DAILY 04/10/18 Clonazepam 0.5 mg PO BID 04/10/18 Docusate Sodium [Colace] 100 mg PO TID 04/10/18 Escitalopram Oxalate [Lexapro -] 5 mg PO DAILY 04/10/18 Furosemide [Lasix -] 20 mg PO DAILY 04/10/18 Metoprolol Tartrate [Lopressor -] 50 mg PO BID 04/10/18 Mirtazapine [Remeron -] 30 mg PO HS 04/10/18 Ranitidine [Zantac -] 150 mg PO HS 04/10/18 metFORMIN HCL [Metformin HCl] 850 mg PO BID 04/10/18 predniSONE [Deltasone -] 40 mg PO DAILY #4 tablet 04/20/18
[2018-04-20] MEDS ORDERED: INSULIN (NOVOLOG) ASPART 100 UNITS/ML 10ML VIAL ONE (11:05)
== END 2018-04-20 14:46 ==
LOC: JER 21:16 → JERBED 04-19 01:45 → UNDOADMOB 04-19 01:46 → JERBED 04-19 01:46 → UNDOADMOB 04-19 02:26 → JERBED 04-19 02:26 → J6S 04-19 03:48
PROVIDERS: ADMIT Internal Medicine; ATTEND Internal Medicine
PROC: 3E033NZ Introduction of Analgesics, Hypnotics, Sedatives into Peripheral Vein, Percutaneous Approach (ICD-10-PCS; principal; 2018-04-19)
PROC: 3E023GC Introduction of Other Therapeutic Substance into Muscle, Percutaneous Approach (ICD-10-PCS; 2018-04-19)
PROC: 3E013VG Introduction of Insulin into Subcutaneous Tissue, Percutaneous Approach (ICD-10-PCS; 2018-04-19)
DX: G51.0 Bell's palsy (principal); F03.90 Unspecified dementia, unspecified severity, without behavioral disturbance, psychotic disturbance, mood disturbance, and anxiety; G40.909 Epilepsy, unspecified, not intractable, without status epilepticus; I10 Essential (primary) hypertension; I25.10 Atherosclerotic heart disease of native coronary artery without angina pectoris; I25.2 Old myocardial infarction; J44.9 Chronic obstructive pulmonary disease, unspecified; R73.03 Prediabetes; Z87.11 Personal history of peptic ulcer disease; Z91.013 Allergy to seafood; Z79.84 Long term (current) use of oral hypoglycemic drugs; Z79.82 Long term (current) use of aspirin
CPT/HCPCS: 36415; 70450-TC; 70551-TC; 71045-TC-FY; 80048; 80053; 80061; 81003; 81015; 82962; 83036; 83721; 83735; 84100; 85025; 85027; 85610; 86618; 87086; 93005; 93010; 93306-TC; 93880-TC; 96372; 96374; 99285-25; G0378; J0131; J1644